=== PATIENT | male | born 1990 | race Hispanic/Latino ===

== ENCOUNTER 2019-11-21 10:42 | Emergency (ER) | payer BC, SELFPAY ==
--- NOTE | ~2019-11-21 | XR_ITS ---
XR wrist LT min 3V DATE: 11/21/2019 11:10 INDICATION: Fall. Left wrist pain and deformity TECHNIQUE: 3 views COMPARISON: None FINDINGS: There is a comminuted minimally displaced intra-articular fracture of the distal radius wit h mild dorsal inclination of the distal radial articular surface. There is transverse fracture at the base of the ulnar styloid process. Radiocarpal alignment is preserved. There is soft tissue swelling at the wrist. IMPRESSION: Comminuted intra-articular fracture of the distal radius Fracture of ulnar styloid process Reviewed, dictated and finalized at location A.
[2019-11-21 10:51] VITALS: BP 139/71; PULSE 92; RESP 18; TEMP 36.6; O2SAT 100
--- NOTE | 2019-11-21 11:28 | ED.UPPEXIN ---
HPI - Extremity Injury (Upper) General Chief Complaint: Extremity Injury, Upper Stated Complaint: L wrist injury Time Seen by Provider: 11/21/19 11:07 Source: patient Mode of arrival: ambulatory Limitations: no limitations History of Present Illness HPI narrative: This is a 29 year old male that presents to the ER for left wrist pain since yesterday. Reports he was skateboarding and lost his balance and fell off catching himself with his left wrist. Reports increasing swelling and pain since. He did not see anybody for this injury yet. Reports decreased range of motion in the wrist due to pain. Denies hitting his head, loss of consciousness, other injuries, or numbness. Related Data Home Medications Medication Instructions Recorded Confirmed alprazolam [Xanax] 0.25 mg PO HS PRN 11/21/19 11/21/19 Allergies Allergy/AdvReac Type Severity Reaction Status Date / Time No Known Allergies Allergy Verified 11/21/19 10:59 Review of Systems Review of Systems: Narrative: CONSTITUTIONAL: Denies fever MUSCULOSKELETAL: Reports joint pain, and myalgia. NEUROLOGIC: Denies numbness All systems reviewed & are unremarkable except as noted in HPI and below PMFSH Past Medical History Medical History (Updated 11/21/19 @ 11:45 by Danielle Pelletier PA-C) History of anxiety Social History Social History (Updated 11/21/19 @ 11:33 by Danielle Pelletier PA-C) Substance use: never Gender identity (if verbalized by the patient): Male Exam Narrative: Exam Narrative: GENERAL: Well-appearing, well-nourished, and in no acute distress. HEAD: Normocephalic, atraumatic. EYES: EOMI. EXTREMITIES: Decreased range of motion in the left wrist due to pain, otherwise normal ROM. Mild-moderate edema and bruising to the left wrist. Normal sensation. Normal radial pulses. Small superficial abrasion noted to the left wrist SKIN: Warm, dry, no rash. NEURO: No focal deficits. Alert and oriented x3. PSYCH: Normal mood and affect Course Consultations Consultation #1: Spoke with Dr. Mims about patient and work-up will follow-up in clinic. Date: 11/21/19 Time: 11:46 Vital Signs Vital signs: Vital Signs Temperature 97.8 F 11/21/19 10:51 Pulse Rate 92 11/21/19 10:51 Respiratory Rate 18 11/21/19 10:51 Blood Pressure 139/71 11/21/19 10:51 Pulse Oximetry 100 11/21/19 10:51 Temperature 97.8 F 11/21/19 10:51 Pulse Rate 92 11/21/19 10:51 Respiratory Rate 18 11/21/19 10:51 Blood Pressure 139/71 11/21/19 10:51 Pulse Oximetry 100 11/21/19 10:51 Procedures Orthopedic Splinting/Casting Injury #1: Splinting/Casting Date: 11/21/19 Splinting/Casting Time: 11:36 Side: left Upper Extremity Injury Location: wrist Upper Extremity Immobilizer: volar splint Splint: customized in ED OCL: volar Pre-Procedure Neuro Vascular Exam: normal Post-Procedure Neuro Vascular Exam: normal MDM - Extremity Injury (Upper) MDM Narrative Medical decision making narrative: Patient presents to the emergency department for left wrist pain after an injury yesterday. Denies hitting his head, loss of consciousness, or other injuries. Vitals are normal. Left wrist x-ray shows a comminuted intra-articular fracture of the distal radius, also a fracture of the ulnar styloid process. Minimal displacement. Patient placed in a volar splint. Spoke with Dr. Mims about patient and work-up will follow-up in clinic. Patient was given warnings to return to the ER Imaging Data Radiologist's impression: ITS Impressions Wrist X-Ray 11/21/19 11:11 IMPRESSION: Comminuted intra-articular fracture of the distal radius Fracture of ulnar styloid process Critical Care Time Critical Care Time Critical Care Time: No Discharge Plan Discharge Clinical Impression: Traumatic closed displaced fracture of distal end of left radius and ulna Qualifiers: Encounter type: initial enco
[2019-11-21 11:57] VITALS: BP 138/96; PULSE 77; RESP 20; O2SAT 98
== END 2019-11-21 12:05 | disposition home or self-care (01) ==
PROVIDERS: Emergency Provider Emergency Medicine
DX: S52.572A Other intraarticular fracture of lower end of left radius, initial encounter for closed fracture (principal); S52.612A Displaced fracture of left ulna styloid process, initial encounter for closed fracture; F41.9 Anxiety disorder, unspecified; V00.131A Fall from skateboard, initial encounter; Y93.51 Activity, roller skating (inline) and skateboarding
CPT/HCPCS: 29125; 73110; 99284; A9270

== ENCOUNTER 2019-11-24 00:40 | Outpatient (CLI) | payer BC, SELFPAY ==
[2019-11-24 18:07] LABS: SARS-CoV-2 RNA PCR Negative
== END 2019-11-24 00:41 | disposition home or self-care (01) ==
LOC: ANHCOVIDDT 00:40
PROVIDERS: Visit Provider Orthopaedic Surgery
DX: Z01.812 Encounter for preprocedural laboratory examination (principal); Z20.828 Contact with and (suspected) exposure to other viral communicable diseases
CPT/HCPCS: 87635; C9803; U0003

== ENCOUNTER 2019-11-25 02:11 | Day surgery (SDC) | payer BC, SELFPAY ==
[2019-11-23 15:56] VITALS: BMI 24.4
[2019-11-25] VITALS (9 sets, daily range): BP systolic 110–145; BP diastolic 47–84; PULSE 59–79; RESP 13–20; TEMP 36.4–36.7; O2SAT 96–100
--- NOTE | ~2019-11-25 | XR_ITS ---
XR surgery orthopedic 11/25/2019 14:14 Indication: Intraoperative fixation of comminuted distal radial fracture Procedure: 3 fluoroscopic images of the left wrist. 44 seconds of fluoroscopy. Comparison: 11/23/2019 Findings: Status post reduction of comminuted distal radial fracture with sideplate and screws with n ear-anatomic alignment post reduction. There is a displaced ulnar styloid fracture. Carpal bones are grossly unremarkable. Impression: 1: Near-anatomic alignment of comminuted distal radial fracture status post placement of sideplate an d screws. Reviewed, dictated and finalized at location A. Impression: 1: Near-anatomic alignment of comminuted distal radial fracture status post charisma cement of sideplate and screws.
--- NOTE | 2019-11-25 06:50 | WPDHPUPDATE1 ---
History and Physical Update Update Date/Time: 11/25/19 06:50 History and Physical has been reviewed, including an updated exam of the patient. Covid test negative. There are NO changes in the patient's condition. Risks, benefits, and alternatives have been discussed and questions answered. Patient agrees to proceed with procedure.
--- NOTE | 2019-11-25 09:20 | WPDANESEPPF ---
Anes - Initial Pre Proc Eval Procedure: Operation Date: 11/25/19 13:00 Proposed Procedures p Open Reduction Internal Fixation Left Wrist - Larry Mims MD Date/Time: 11/25/19 09:20 Surgeon: Larry Mims MD Pre Op Diagnosis: Left Wrist Fracture Patient Data Age: 29 Gender: M Height: 1.8 m Weight: 79.38 kg Allergies Allergy/AdvReac Type Severity Reaction Status Date / Time No Known Allergies Allergy Verified 11/23/19 15:57 Home Medications Medication Instructions Recorded Confirmed Type alprazolam [Xanax] 0.25 mg PO HS PRN 11/21/19 11/23/19 History hydrocodone-acetaminophen 1 tablet PO Q6H PRN #20 tablet 11/21/19 11/23/19 Rx Patient hx anesthesia problems: none Family hx anesthesia problems: none PMFSH Past Medical History Medical History (Updated 11/23/19 @ 14:12 by Larry Mims MD) Distal radius fracture, left History of anxiety Social History Social History Smoking status: Unknown if ever smoked Substance use: never Gender identity (if verbalized by the patient): Male Anes - Eval Final PreProcedure Day of Procedure 11/25/19 09:20 Patient weight: normal Heart: regular rate and rhythm Lungs: clear to auscultation and normal air movement Airway: Mallampati scale class II Neurological: alert and oriented Last oral intake: >/= 8 hours ASA classification: II Emergent: no Anesthetic plan: proceed Anesthesia type and monitoring: general LMA Informed Consent: The patient's anesthetic plan and its attendant risks and benefits were discussed with the patient/family/POA. Questions were solicited and answers provided to the satisfaction of the patient/family/POA.
[2019-11-25] MEDS: LACTATED RINGERS 1,000 ML 30 ML IV CONT ×2 (11:10→14:32)
--- NOTE | 2019-11-25 11:39 | WPDANESPNB ---
Anes - Peripheral Nerve Block Date/Time: 11/25/19 11:39 I have discussed with the patient/family/POA the placement of a peripheral nerve block for post-operative pain management, including associated risks, benefits, complications, and side effects. Alternative methods of post-operative analgesia were detailed. Questions were solicited and answers provided to the satisfaction of the patient/family/POA. Time-Out: A pre-procedural Time-Out was completed immediately before starting the procedure and confirmed: Patient Identification, Site, Procedure, Patient Position and the Availability of Requisite Equipment. Clinical Indications: Acute post-operative pain management requested by the operative surgeon. Nerve Block Insertion Note Anes-nerve block: supraclavicular left Patient position: supine Skin prep: chlorhexidine Needle: 22 gauge, stimulating, insulated echogenic needle. Needle length: 80 mm Technique: ultrasound (in plane) Injectate: bupivacaine 0.5% with epi 5 mcg/ml (20cc) Observations: tolerated well Complications: none Procedure start time:: 1150 Procedure end time:: 1155
[2019-11-25] MEDS: ceFAZolin 2 GM/D5W 50 ML 2 GM/50 ML BAG IVPB (12:41)
[2019-11-25] MEDS: IBUPROFEN IV 800 MG/200 ML 800 MG/200 ML BAG 400 MG IVPB (12:58)
--- NOTE | 2019-11-25 14:42 | P.OP_ITS ---
Procedure Note - Detailed Date of procedure: 11/25/19 Pre-op diagnosis: Left Wrist Fracture Post-op diagnosis: same Procedure performed: Open reduction internal fixation left distal radius fracture, intra-articular, comminuted with more than 4 fragments. Description of procedure: Indications: Patient is a 29-year-old gentleman who sustained a left distal radius fracture with a skateboard injury. He presents for operative treatment. What was done: Patient identified in the preoperative holding. Informed consent given. Operative extremity marked. Patient received intravenous antibiotics. Patient brought to the operating room where underwent general anesthetic by anesthesia team. Positioned supine on operating room table. Time-out performed confirming the patient, site of the surgery and the plan. Left arm prepped and draped usual sterile surgical fashion using ChloraPrep skin solution. Hand and wrist exsanguinated and an arm tourniquet inflated to 225 mmHg. Volar approach utilized. Fifteen blade knife used to make longitudinal incision over the flexor carpi radialis tendon. The tendon was retracted radialward. Incision made with 15 blade knife through the floor of the tendon sheath. Flexor pollicis was retracted medial cruz and protection of the median nerve. The pronator was elevated off the distal radius to expose the fracture. Is noted to be severe comminution and impaction of the fracture. Care was taken to elevate the articular surface and reduced the fracture fragments which were provisionally pinned and verified with image intensification. Fixation achieved with a volar locking distal radius plate. 2.0 mm locking pegs placed distally and 3.5 mm screws proximally. Image intensification confirm reduction of the fracture and placement of the hardware. Wound thoroughly irrigated antibiotic solution. Pronator repaired with 3 0 Monocryl interrupted suture. Subcutaneous tissue repaired with 3 O Monocryl interrupted suture. Skin repaired with 3 0 Monocryl running subcuticular stitch. Tourniquet released good capillary refill noted in the fingers and thumb. Sterile dressing and splint applied. The patient was then woken from anesthesia, extubated and taken to the recovery room in stable condition. All sponge, needle, instrument counts were correct at the end of the case. Implants: [employer] volar radius locking plate with 2.0 mm locking pegs and 3.5 mm bicortical screws proximally Anesthesia: GLMA Surgeon: Larry Mims MD Maintenance Worker House Trailer: assistant softball coach Estimated blood loss (mL): 10 Tourniquet time (min): 65 Drains: No Packing: No Pathology: none sent Complications: None Condition: stable Disposition: PACU
--- NOTE | 2019-11-25 15:03 | SUR.PHASEI ---
1500 SPOKE WITH MOM AND UPDATED ON PT CONDITION
--- NOTE | 2019-11-25 16:24 | SUR.PHASEII ---
PT ASSISTED GETTING DRESSED TO HOLD HIS LEFT ARM; PT UNABLE TO HOLD LEFT UP LEFT ARM.
--- NOTE | 2019-11-25 16:26 | SUR.PHASEII ---
PT DRESSED, WAITING FOR MOM TO PICK HIM UP.
== END 2019-11-25 16:35 | disposition home or self-care (01) ==
PROVIDERS: Visit Provider Orthopaedic Surgery
PROC: (CPT 25575; principal; 2019-11-25 13:00)
DX: S52.572A Other intraarticular fracture of lower end of left radius, initial encounter for closed fracture (principal); V00.131A Fall from skateboard, initial encounter; Y93.51 Activity, roller skating (inline) and skateboarding; G89.18 Other acute postprocedural pain
CPT/HCPCS: 25609; 64415; A4565; A9270; C1713; J0690; J1100; J1741; J2250; J2405; J2704; J3010; J7120